=== PATIENT | female | born 1965 | race Caucasian/White ===

== ENCOUNTER 2020-11-12 11:05 | Emergency (ER) | payer OTHER ==
[~2020-11-12] VITALS: Ht 167.6 cm; Wt 56.4 kg
[2020-11-12] MEDS ORDERED: acetaminophen 325mg tablet PO STA (11:50)
[2020-11-12] MEDS ORDERED: normal saline 1000ML IV soln IV ONE (11:50)
[2020-11-12] MEDS ORDERED: ALBUTEROL INHALER 1 PUFF/90 MCG INHALER IH PRN (11:50)
[2020-11-12 12:43] LABS: BASOPHILS % (AUTO) 0.3 % (0-1); EOSINOPHILS % (AUTO) 0 % (0-6); HEMATOCRIT 39.6 % (35.0-45.0); HEMOGLOBIN 13.3 g/dl (12.0-16.0); LYMPHOCYTES # (AUTO) 0.9 X10'3 (1.1-4.8); MEAN CORPUSCULAR HEMOGLOBIN 29.6 PG (27.0-31.0); MEAN CORPUSCULAR HGB CONC 33.6 g/dL (33.0-36.5); MEAN CORPUSCULAR VOLUME 88.2 FL (78-98); MEAN PLATELET VOLUME 7.9 FL (7.4-10.4); MONOCYTES # (AUTO) 0.2 X10'3 (0-0.9); MONOCYTES % (AUTO) 3.5 % (2-12); NEUTROPHILS # (AUTO) 3.7 X10'3 (1.8-7.7); NEUTROPHILS % (AUTO) 78.2 % (42-75); PLATELET COUNT 194 X10'3 (140-440); RED BLOOD COUNT 4.49 X10'6 (4.20-5.60); RED CELL DISTRIBUTION WIDTH 13.3 % (11.5-14.5); WHITE BLOOD COUNT 4.7 X10'3 (4.5-11.0)
[2020-11-12 12:45] VITALS: BP 96/60
[2020-11-12 12:59] LABS: ALANINE AMINOTRANSFERASE 22 U/L (12-78); ALBUMIN 3.8 G/DL (3.4-5.0); ALKALINE PHOSPHATASE 75 IU/L (46-116); ANION GAP 13 (8-16); ASPARTATE AMINO TRANSFERASE 34 U/L (10-37); BILIRUBIN,TOTAL 0.4 MG/DL (0.1-1.0); BLOOD UREA NITROGEN 14 MG/DL (7-18); BUN/CREATININE RATIO 17.5 (6.6-38.0); C-REACTIVE PROTEIN 3.34 MG/DL (0.0-0.5); CHLORIDE 96 MMOL/L (99-107); GLUCOSE 98 MG/DL (70-104); POTASSIUM 4.1 MMOL/L (3.5-5.1); SODIUM 132 MMOL/L (135-145); TOTAL CARBON DIOXIDE 22.7 MMOL/L (24-32); TOTAL PROTEIN 7.6 G/DL (6.4-8.2); eGFR 74 ML/MIN
[2020-11-12] MEDS ORDERED: dexamethasone sod phosphate 10mg/ml inj IV STA (13:24)
[2020-11-12] MEDS ORDERED: DEXA4TAB67 PO (13:26)
[2020-11-12] MEDS ORDERED: ALBU6.7H9 INH (13:26)
[2020-11-12] MEDS ORDERED: AZIT500T PO (13:26)
== END 2020-11-12 15:52 | disposition home or self-care (01) ==
LOC: ER 11:06
DX: U07.1 COVID-19 (principal); J12.82 Pneumonia due to coronavirus disease 2019
CPT/HCPCS: 36415; 71045; 80053; 83605; 84145; 85025; 86140; 87040; 87077; 87186; 93005; 96361; 96374; 99285; J1100; J7030